=== PATIENT | male | born 1995 | race Caucasian/White ===

== ENCOUNTER 2018-08-24 03:06 | Emergency (ER) | payer OTHER ==
[2018-08-24] MEDS ORDERED: ACYCLOVIR 400 MG PREPACK#4 BTL TAKEHOME ONE (03:46)
[2018-08-24] MEDS ORDERED: ACYCLOVIR 400 MG TAB PO ONE (03:46)
--- NOTE | 2018-08-24 03:49 | EDPHY ---
H & P Stated Complaint: LEFT LOWER LIP SWELLING FEW HRS. DENIES TRAUMA Time Seen by Provider: 08/24/18 03:47 HPI/ROS: HPI CHIEF COMPLAINT: Left lower lip swelling and pain started at midnight. HISTORY OF PRESENT ILLNESS: 22-year-old male, otherwise healthy denies any significant medical history presents emergency room with left lateral lower lip swelling and pain. He has never had HSV. He has had intraoral cold sores before. Started at midnight rather uncomfortable. Decided come the emergency room for evaluation. Denies fever or trauma. Denies other lesions. Past Medical History: Denies medical history Past Surgical History: Denies surgical history Social History: Denies drugs alcohol tobacco. Family History: Noncontributory ROS REVIEW OF SYSTEMS: 10 Systems were reviewed and negative with the exception of the elements mentioned in the history of present illness. Exam Constitutional triage nursing summary reviewed, vital signs reviewed, awake/ alert. Eyes normal conjunctivae and sclera, EOMI, PERRLA. HENT oropharynx: Left lateral lower lip appears to be HSV present. On the inner aspect the left lower lip there is a cold sore present. It is mildly swollen and tender. No abscess no cellulitis. No other intraoral lesions. normal inspection, atraumatic, moist mucus membranes, no epistaxis, neck supple / no meningismus, no raccoon eyes. Respiratory clear to auscultation bilaterally, normal breath sounds, no respiratory distress, no wheezing. Cardiovascular rate normal, regular rhythm, no murmur, no edema, distal pulses normal. Gastrointestinal soft, non-tender, no rebound, no guarding, normal bowel sounds, no distension, no pulsatile mass. Genitourinary no CVA tenderness. Musculoskeletal no midline vertebral tenderness, full range of motion, no calf swelling, no tenderness of extremities, no meningismus, good pulses, neurovascularly intact. Skin pink, warm, & dry, no rash, skin atraumatic. Neurologic awake, alert and oriented x 3, AAOx3, moves all 4 extremities equally, motor intact, sensory intact, CN II-XII intact, normal cerebellar, normal vision, normal speech. Psychiatric normal mood/affect. Heme/Lymph/Immune no lymphadenopathy. Differential Diagnosis: Includes but is not limited to in a particular order HSV, HSV 1, HSV 2, stress ulcer, canker sore. Medical Decision Making: Plan for this patient oral acyclovir, cool compresses , ibuprofen for pain. Return if worsening pain swelling or spreading. Patient understands. Contact precautions discussed with the patient. Re-evaluation: Source: Patient - Personal History Current Tetanus/Diphtheria Vaccine: Yes Current Tetanus Diphtheria and Acellular Pertussis (TDAP): Yes - Medical/Surgical History Hx Asthma: No Hx Chronic Respiratory Disease: No Hx Diabetes: No Hx Cardiac Disease: No Hx Renal Disease: No Hx Cirrhosis: No Hx Alcoholism: No Hx HIV/AIDS: No Hx Splenectomy or Spleen Trauma: No Other PMH: DENIES - Social History Smoking Status: Never smoked Constitutional: Initial Vital Signs Temperature (C) 36.9 C 08/24/18 03:12 Heart Rate 76 08/24/18 03:12 Respiratory Rate 18 08/24/18 03:12 O2 Sat (%) 96 08/24/18 03:12 O2 Delivery Mode Room Air Allergies/Adverse Reactions: amoxicillin Allergy (Verified 08/24/18 03:14) Home Medications: Medication Instructions Recorded Acyclovir [Zovirax 400 mg (*)] 400 mg PO BID #28 tab 08/24/18 Departure - Departure Disposition: Home, Routine, Self-Care Clinical Impression: HSV (herpes simplex virus) infection Condition: Good Instructions: Oral Herpes Simplex Virus Infections (ED) Additional Instructions: 1. Cool compresses. 2. Acyclovir as prescribed 3. Return to the ER for worsening symptoms Referrals: ARTEMIO ALVARADO [Other] - As per Instructions Prescriptions: Acyclovir [Zovirax 400 mg (*)] 400 mg PO BID #28 tab
== END 2018-08-24 04:09 | disposition home or self-care (01) ==
DX: P35.2 Congenital herpesviral [herpes simplex] infection (principal)